=== PATIENT | male | born 1940 | race Caucasian/White ===

== ENCOUNTER 2017-04-03 14:10 | Day surgery (SDC) | payer OTHER ==
[~2017-04-03] VITALS: Ht 170.2 cm; Wt 82.4 kg
[~2017-04-03 14:10] MED LIST: ESOMEPRAZOLE MA40 MG PO; FERROUS SULFAT325 MG PO; PRAVASTATIN SOD20 MG PO; TOPROL XL25 MG PO
[2017-04-03 17:20] LABS: HEMATOCRIT 44.2 % (38.0-50.0); MCH 29.7 PG (29.0-34.0); MCHC 31.9 G/DL (30.0-36.0); MCV 93.2 FL (86-99); PLATELET COUNT 186 K/uL (156-360); RBC DIS.WIDTH-CV 13.6 % (11.8-14.6); RBC DIS.WIDTH-SD 47.7 % (39-53); RED BLOOD COUNT 4.74 M/uL (4.00-5.50); WHITE BLOOD COUNT 8.5 K/uL (4.1-10.2)
[2017-04-03 17:46] LABS: CHLORIDE 109 mEq/L (99-109); POTASSIUM 4.2 mEq/L (3.7-5.4); SODIUM 146 mEq/L (136-147)
[2017-04-03 17:48] LABS: GLUCOSE 79 mg/dL (70-99)
[2017-04-03 17:49] LABS: ANION GAP 13 MEQ/L (2-14)
[2017-04-03 17:50] LABS: TOTAL BILIRUBIN 1.9 mg/dL (0.0-1.0)
[2017-04-03 17:51] LABS: ALKALINE PHOSPHATASE 70 IU/L (3-129); TROP-I INTERPRETATION NEGATIVE; TROPONIN-I 0.05 ng/mL (0.0-0.30)
[2017-04-03 17:52] LABS: GFR ESTIMATE (CALCULATED) 57 mL/min/
[2017-04-03 17:53] LABS: UREA NITROGEN (BUN) 24 mg/dL (9-23)
[2017-04-03] MEDS ORDERED: LOSARTAN POTAS100 MG PO (19:09)
[2017-04-03] MEDS ORDERED: [UNRECOGNIZED DRUG - OTHER] TP (19:13)
[2017-04-03 22:51] VITALS: BP 196/98
[2017-04-04 01:00] VITALS: BP 150/92
[2017-04-04 03:35] VITALS: BP 132/62
[2017-04-04 06:52] LABS: HEMATOCRIT 39.8 % (38.0-50.0); MCH 30.5 PG (29.0-34.0); MCHC 32.4 G/DL (30.0-36.0); MCV 94.1 FL (86-99); MEAN PLAT.VOLUME 10.8 uM^3 (9.0-12.4); PLATELET COUNT 180 K/uL (156-360); RBC DIS.WIDTH-CV 13.7 % (11.8-14.6); RBC DIS.WIDTH-SD 47.1 % (39-53); RED BLOOD COUNT 4.23 M/uL (4.00-5.50); WHITE BLOOD COUNT 5.3 K/uL (4.1-10.2)
[2017-04-04 07:19] LABS: ALKALINE PHOSPHATASE 53 IU/L (3-129); ANION GAP 8 MEQ/L (2-14); CHLORIDE 110 MEQ/L (99-109); GFR ESTIMATE (CALCULATED) > 59 mL/min/; POTASSIUM 4.3 MEQ/L (3.7-5.4); SAMPLE HEMOLYSIS CHECK 0; SAMPLE ICTERIC CHECK 0; SAMPLE LIPEMIA CHECK 0; SODIUM 144 MEQ/L (136-147); TOTAL BILIRUBIN 1.3 MG/DL (0.0-1.0); UREA NITROGEN (BUN) 25 mg/dL (9-23)
[2017-04-04 07:24] LABS: GLUCOSE 104 mg/dL (70-99)
[2017-04-04 08:20] VITALS: BP 156/83
[2017-04-04 11:12] VITALS: BP 162/86
== END 2017-04-04 12:42 | disposition home or self-care (01) ==
LOC: EME 14:10 → SDC 20:41 → 2EAST 21:26 → 2SOUTH 21:26 → 2EAST 22:30
PROVIDERS: Internal Medicine; Nurse Practitioner Family
PROC: 0DC58ZZ Extirpation of Matter from Esophagus, Via Natural or Artificial Opening Endoscopic (ICD-10-PCS; principal; 2017-04-03)
DX: T18.128A Food in esophagus causing other injury, initial encounter (principal); K22.2 Esophageal obstruction; K22.11 Ulcer of esophagus with bleeding; I10 Essential (primary) hypertension; K21.9 Gastro-esophageal reflux disease without esophagitis; R79.89 Other specified abnormal findings of blood chemistry; E78.00 Pure hypercholesterolemia, unspecified; Z88.0 Allergy status to penicillin
CPT/HCPCS: 70490; 80053; 84100; 84484; 85027; 93005; 99281; 99285; C9113; G0378; J0330; J1100; J1644; J2405; J3010; J7030

== ENCOUNTER 2018-05-13 18:08 | Day surgery (SDC) | payer OTHER ==
[~2018-05-13] VITALS: Ht 172.7 cm; Wt 86.0 kg
[~2018-05-13 18:08] MED LIST changes: +LOSARTAN POTAS100 MG PO; +[UNRECOGNIZED DRUG - OTHER] TP
[2018-05-13 20:14] LABS: HEMATOCRIT 42.8 % (38.0-50.0); HEMOGLOBIN 14.2 G/DL (12.5-16.6); MCH 30.2 PG (29.0-34.0); MCHC 33.2 G/DL (30.0-36.0); MCV 91.1 FL (86-99); RBC DIS.WIDTH-CV 13.3 % (11.8-14.6); RBC DIS.WIDTH-SD 45.1 % (39-53); WHITE BLOOD COUNT 8.8 K/uL (4.1-10.2)
[2018-05-13] MEDS ORDERED: LOPRESSOR25 MG PO (20:23)
[2018-05-13] MEDS ORDERED: RANITIDINE HCL150 MG PO (20:23)
[2018-05-13 20:24] LABS: CHLORIDE 106 mEq/L (99-109); POTASSIUM 4.9 mEq/L (3.7-5.4); SODIUM 140 mEq/L (136-147)
[2018-05-13 20:26] LABS: GLUCOSE 91 mg/dL (70-99)
[2018-05-13 20:30] LABS: CREATININE 1.1 mg/dL (0.6-1.3); GFR ESTIMATE (CALCULATED) > 59 mL/min/ (58.99-99999)
[2018-05-13 20:31] LABS: UREA NITROGEN (BUN) 15 mg/dL (9-23)
[2018-05-13 21:09] VITALS: BP 157/90
[2018-05-13 21:11] LABS: BASOPHIL (%) 1.1 % (0-1); BASOPHIL COUNT 0.1 K/uL (0-0.1); EOSINOPHIL (%) 3.9 % (0-5); EOSINOPHIL COUNT 0.3 K/uL (0-0.3); IMMATURE GRANULOCYTE (%) 0.2 % (0.0-0.7); LYMPHOCYTE (%) 41.1 % (15-42); LYMPHOCYTE COUNT 3.6 K/uL (1.0-2.8); MONOCYTE (%) 10.5 % (3-12); MONOCYTE COUNT 0.9 K/uL (0-0.8); NEUTROPHIL (%) 43.2 % (45-76); NEUTROPHIL COUNT 3.8 K/uL (1.8-6.4); PLATELET COUNT 178 K/uL (156-360)
[2018-05-13 21:12] LABS: PLAT.SUFFICIENCY ADEQUATE
== END 2018-05-13 22:45 | disposition home or self-care (01) ==
LOC: EME 18:08 → 2SOUTH 21:13 → EME 21:13 → SDC 21:13 → EME 21:13 → 2SOUTH 22:45 → SDC 22:45
PROVIDERS: Physician Assistant
PROC: 0DC58ZZ Extirpation of Matter from Esophagus, Via Natural or Artificial Opening Endoscopic (ICD-10-PCS; principal; 2018-05-13)
DX: T18.128A Food in esophagus causing other injury, initial encounter (principal); K22.2 Esophageal obstruction; I10 Essential (primary) hypertension; E78.5 Hyperlipidemia, unspecified; K21.9 Gastro-esophageal reflux disease without esophagitis; Z86.010 Personal history of colon polyps; Z88.0 Allergy status to penicillin
CPT/HCPCS: 80048; 82948; 85025; 99281; 99285; C9113; J0330; J2405; J7030